=== PATIENT | male | born 1980 | race Hispanic/Latino ===

== ENCOUNTER 2019-07-28 00:05 | Emergency (ER) | payer OTHER ==
[~2019-07-28] VITALS: Ht 177.8 cm; Wt 68.2 kg
[2019-07-28] MEDS ORDERED: LIDOCAINE 1% MDV 20ML VIAL SC ONE (00:30)
[2019-07-28] MEDS ORDERED: KEFL500C17 PO (00:35)
[2019-07-28] MEDS ORDERED: LIDOCAINE W/EPINEPHRINE 1% 20ML VIAL SC ONE (00:45)
[2019-07-28] MEDS ORDERED: IBUPROFEN 800 MG TAB PO ONE (01:30)
[2019-07-28] MEDS ORDERED: IBUP80TA PO (01:37)
[2019-07-28 01:41] VITALS: BP 130/70
== END 2019-07-28 02:03 | disposition home or self-care (01) ==
LOC: M ED 00:05
DX: K61.0 Anal abscess (principal)